=== PATIENT | male | born 1960 | race Caucasian/White ===

== ENCOUNTER 2023-05-31 11:36 | Outpatient (OUT) | payer OTHER, SELFPAY ==
--- NOTE | 2023-05-31 12:05 | XR_ITS ---
The [address] [address] Patient Name: CAROL NANCE MRN: [id number] date: 1960 Sex: M Assigned Patient Location: RAD Current Patient Location: [facility] Accession/Order Number: [id number] Exam Date: 05/31/2023 12:00 Report Date: 05/31/2023 12:19 At the request of: JENSEN HERRERA Procedure: XR finger RT min 2V EXAM: XR finger RT min 2V HISTORY: Right thumb cellulitis L03.011 . The patient has redness and pain in the right thumb 3 weeks after an injury. COMPARISON: None. TECHNIQUE: 3 views of the right thumb were obtained. FINDINGS: There is evidence of a nondisplaced fracture involving the proximal shaft of the distal phalanx of the thumb. This does not extend to the articular surface at the adjacent joint. There is no other evidence of an acute fracture or dislocation. Ill-defined focal lucency is seen along the distal aspect of the proximal phalanx ulnarly. This may indicate an additional nondisplaced fracture or possibly a focal area of osteomyelitis. There is prominent narrowing of the interphalangeal joint of the thumb. No other significant osseous abnormality is identified. Prominent diffuse soft tissue swelling about the thumb is noted. XR/XR finger RT min 2V IMPRESSION: There is a nondisplaced fracture involving the distal phalanx of the thumb. Ill-defined focal lucency in the distal aspect of the proximal phalanx suggests an additional nondisplaced fracture or possibly focal osteomyelitis. There is prominent narrowing of the interphalangeal joint of the thumb. No other osseous abnormality is clearly identified. Prominent diffuse soft tissue swelling of the thumb is noted. Comparison with a previous study may be helpful in determining the chronicity of these findings. A follow-up study after appropriate therapy is recommended. Electronically authenticated by: YADY ALEXANDER Date: 05/31/2023 12:19
== END 2023-05-31 11:37 | disposition home or self-care (01) ==
PROVIDERS: PCP Family Medicine; Visit Provider Family Medicine
DX: L03.011 Cellulitis of right finger (principal)
CPT/HCPCS: 73140

== ENCOUNTER 2023-06-08 09:29 | Outpatient (OUT) | payer OTHER, SELFPAY ==
--- NOTE | 2023-06-08 09:45 | MR_ITS ---
The [address] [address] Patient Name: CAROL NANCE MRN: [id number] date: 1960 Sex: M Assigned Patient Location: MRI Current Patient Location: Accession/Order Number: [id number] Exam Date: 06/08/2023 09:45 Report Date: 06/10/2023 18:04 At the request of: SARAH BETH HESS Procedure: MR hand RT wo con EXAM: MR hand RT wo con HISTORY: First distal phalanx fracture COMPARISON: X-rays 05/31/2023 TECHNIQUE: Multiplanar, multi sequential MRI sequences were performed FINDINGS: Due to the nature of MRI imaging, evaluation of the patient's fracture is limited. Fracture of the first distal phalanx. Bone marrow edema throughout the first distal phalanx. Bone marrow edema of the first proximal phalanx with sparing of the proximal phalanx base. Adjacent soft tissue edema. No discrete first IP joint effusion. The first metacarpal and the remainder of the visualized osseous structures are unremarkable. The tendons of the first digit exhibit no gross visualized full-thickness tear or retraction. The remainder of the visualized tendons are unremarkable. The first carpometacarpal, first metacarpophalangeal, second and third metacarpophalangeal joints exhibit no effusion, erosion or synovitis. MR/MR hand RT wo con IMPRESSION: The first distal phalanx fracture. CT imaging is recommended for further evaluation of the fracture fragments. Electronically authenticated by: LUCY ALARCON Date: 06/10/2023 18:04
== END 2023-06-08 09:30 | disposition home or self-care (01) ==
LOC: MRI 09:30
PROVIDERS: PCP Family Medicine; Visit Provider Orthopaedic Surgery
DX: S62.501A Fracture of unspecified phalanx of right thumb, initial encounter for closed fracture (principal)
CPT/HCPCS: 73218

== ENCOUNTER 2024-02-20 08:35 | Outpatient (OUT) | payer OTHER, SELFPAY ==
[2024-02-20 09:35] LABS: Estimated Average Glucose 117 mg/dL; Glycohemoglobin A1C 5.7 % (4.5-6.2)
[2024-02-20 09:39] LABS: Basophils Absolute Auto 0.1 10^3/uL (0.0-0.1); Basophils Percent Auto 1.2 % (0.2-2.0); Eosinophils Absolute Auto 0.2 10^3/uL (0.0-0.7); Eosinophils Percent Auto 3.9 % (0.9-7.0); Hematocrit 42.6 % (42.0-54.0); Hemoglobin 14.7 g/dL (14.0-18.0); Immature Granulocytes Abs Auto 0.02 10^3/uL (0.00-0.03); Immature Granulocytes Pct Auto 0.3 % (0.0-0.5); Lymphocytes Percent Auto 33.1 % (20.5-60.0); Mean Corpuscular HGB Conc 34.5 g/dL (29.9-35.2); Mean Corpuscular Hemoglobin 32.6 pg (25.9-34.0); Mean Corpuscular Volume 94.5 fL (80.0-94.0); Mean Platelet Volume 9.6 fL (9.5-13.5); Monocytes Absolute Auto 0.7 10^3/uL (0.3-0.8); Monocytes Percent Auto 11.7 % (1.7-12.0); Neutrophils Percent Auto 49.8 % (43.0-75.0); Platelet Count 230 10^3/uL (150-450); Red Blood Count 4.51 10^6/uL (4.70-6.10); Red Cell Distribution Width 11.6 % (11.0-15.0)
[2024-02-20 11:39] LABS: Alanine Aminotransferase 43 U/L (16-63); Albumin Globulin Ratio 1.1; Alkaline Phosphatase 62 U/L (46-116); Anion Gap 12.1; Aspartate Amino Transferase 29 U/L (15-37); BUN Creatinine Ratio 14.3; Bilirubin Direct 0.1 mg/dL (0.0-0.2); Bilirubin Total 0.5 mg/dL (0.2-1.0); Calcium 9.5 mg/dL (8.5-10.1); Carbon Dioxide 27.2 mmol/L (21.0-32.0); Chloride 102 mmol/L (98-107); Chol HDL Ratio 3.7; Cholesterol 182 mg/dL (<=200); Estimated GFR (African America >60 (>=60); Estimated GFR (Non-African Ame >60 (>=60); Globulin 3.6 g/dL; Glucose 104 mg/dL (74-106); HDL Cholesterol 49 mg/dL (40-60); Potassium 4.3 mmol/L (3.5-5.1); Sodium 137 mmol/L (136-145); Thyroid Stimulating Hormone 0.975 uIU/mL (0.358-3.740); Total Protein 7.6 g/dL (6.4-8.2); Triglycerides 70 mg/dL (<=150)
[2024-02-20 11:46] LABS: Prostate Specific Antigen Scrn <0.13 ng/mL (<=4.00)
== END 2024-02-20 08:36 | disposition home or self-care (01) ==
LOC: LAB 08:36
PROVIDERS: PCP Family Medicine; Visit Provider Family Medicine
DX: Z00.00 Encounter for general adult medical examination without abnormal findings (principal)
CPT/HCPCS: 36415; 80048; 80061; 80076; 83036; 84443; 85025; G0103

== ENCOUNTER 2024-05-21 07:04 | Outpatient (OUT) | payer OTHER, SELFPAY ==
--- OUTSIDE RECORDS SUMMARY | 2024-05-21 07:07 | XMS_ITS | CCD ---
Author Organization [facility] Inform ion Partnership [facility] Care Team Providers Care Mobile Ui Designer Name Role Phone DR JENSEN HERRERA Admitting Unavailable JAVIER, DR JENSEN Quinteros Attending Unavailable DR JENSEN HERRERA Primary Care Unavailable DR JENSEN HERRERA Consulting Unavailable JENSEN HERRERA Attending Unavailable JAILENE NUGENT Attending Unavailable JENSEN HERRERA Referring Unavailable Problems Problem Classification Problem Date Documented Da te Episodic/Chronic Other screening for suspected conditions (not mental disorders or infectious disease) (1 source) Encounter for screening for malignant neoplasm of prostate; Translations: [ENC SCREEN MALIG NEOPLASM PROSTATE] Onset: 03-03-2023 Episodic Results Test Name Value Interpretation Reference Range Facil ity CBC AUTO DIFFon 02-27-2023 BASO # 0.1 103/ul Normal 0.0-0.1 [facility] Comment on above: Performed By: #### C BC #### [facility] [address] [place] [address] Dr. Reji Briscoe Basophils/100 WBC (Bld) 1.1 % Normal 0.2-2.0 [facility] Comment on above: Performed By: #### C BC #### [facility] [address] [address] [address] Reji Briscoe EO # 0.2 103/ul Normal 0.0-0.7 [facility] Comment on above: Performed By: #### C BC #### [facility] [address] [address] [address] Reji Briscoe Eosinophils/100 WBC (Bld) 3.8 % Normal 0.9-7.0 [facility] Comment on above: Performed By: #### C BC #### [facility] [address] [address] [address] Reji Briscoe Erythrocyte distribution width (RBC) [Ratio] 12.2 % Normal 11.0-15.0 [facility] Comment on above: Performed By: #### C BC #### [facility] [address] [place] [address] Dr. Reji Briscoe Hematocrit (Bld) [Volume fraction] 44.4 % Normal 42.0-54.0 [facility] Comment on above: Performed By: #### C BC #### [facility] [address] [place] [address] Dr. Reji Briscoe Hemoglobin (Bld) [Mass/Vol] 15.2 g/dL Normal 14.0-18.0 [facility] Comment on above: Performed By: #### C BC #### [facility] [address] [place] [address] Dr. Reji Briscoe IG # 0.03 10e3/ul Normal 0.00-0.03 [facility] Comment on above: Performed By: #### C BC #### [facility] [address] [place] [address] Dr. Reji Briscoe IG % 0.5 % Normal 0.0-0.5 [facility] Comment on above: Performed By: #### C BC #### [facility] [address] [place] [address] Dr. Reji Briscoe LYMPH # 2.1 103/ul Normal 1.2-3.8 [facility] Comment on above: Performed By: #### C BC #### [facility] [address] [place] [address] Dr. Reji Briscoe Lymphocytes/100 WBC (Bld) 33.9 % Normal 20.5-60.0 [facility] Comment on above: Performed By: #### C BC #### [facility] [address] [place] [address] Dr. Reji Briscoe MANUAL DIFF REQ NO Normal [facility] Comment on above: Performed By: #### C BC #### [facility] [address] [place] [address] Dr. Reji Briscoe MCH (RBC) [Entitic mass] 31.6 pg Normal 25.9-34.0 [facility] Comment on above: Performed By: #### C BC #### [facility] [address] [place] [address] Dr. Reji Briscoe MCHC (RBC) [Mass/Vol] 34.2 g/dL Normal 29.9-35.2 [facility] Comment on above: Performed By: #### C BC #### [facility] [address] [place] [address] Dr. Reji Briscoe MCV (RBC) [Entitic vol] 92.3 fL Normal 80.0-94.0 [facility] Comment on above: Performed By: #### C BC #### [facility] [address] [place] [address] Dr. Reji Briscoe MONO # 0.5 103/ul Normal 0.3-0.8 [facility] Comment on above: Performed By: #### C BC #### [facility] [address] [place] [address] Dr. Reji Briscoe Monocytes/100 WBC (Bld) 8.6 % Normal 1.7-12.0 [facility] Comment on above: Performed By: #### C BC #### [facility] [address] [place] [address] Dr. Reji Briscoe NEUT # 3.2 103/ul Normal 1.4-6.5 [facility] Comment on above: Performed By: #### C BC #### [facility] [address] [place] [address] Dr. Reji Briscoe Neutrophils/100 WBC (Bld) 52.1 % Normal 43.0-75.0 [facility] Comment on above: Performed By: #### C BC #### [facility] [address] [place] [address] Dr. Reji Briscoe Platelet mean volume (Bld) [Entitic vol] 8.9 fL Critically low 9.5-13.5 [facility] Comment on above: Performed By: #### C BC #### [facility] [address] [place] [address] Dr. Reji Briscoe PLT 235 103/ul Normal 150-450 [facility] Comment on above: Performed By: #### C BC #### [facility] [address] [place] [address] Dr. Reji Briscoe RBC 4.81 106/ul Normal 4.70-6.10 [facility] Comment on above: Performed By: #### C BC #### [facility] [address] [address] [address] Reji Briscoe WBC 6.1 103/ul Normal 4.0-11.0 [facility] Comment on above: Performed By: #### C BC #### [facility] [address] [place] [address] Dr. Reji Briscoe GLYCOHEMOGLOBIN A1Con 2022 ADA RECOMMENDATION SEE BELOW Normal [facility] Comment on above: Result Comment: ADA RECOMMENDED LIMIT 4.0 - 6.0 ADA THERAPEUTIC TARGET < 7.0 ACTION SUGGESTED > 7.0 Performed By: #### A 1C #### [facility] [address] [place] [address] Dr. Reji Briscoe Glucose [Mass/Vol] 117 mg/dL Normal [facility] Comment on above: Performed By: #### A 1C #### [facility] [address] [place] [address] Dr. Reji Briscoe HbA1c (Bld) [Mass fraction] 5.7 % Normal 4.5-6.2 [facility] Comment on above: Performed By: #### A 1C #### [facility] [address] [place] [address] Dr. Reji Briscoe LIPID PROFILEon 02-27-2023 CHOL-HDL RATIO NORM SEE BELOW Normal [facility] Comment on above: Result Comment: 3.3 - 4.4 LOW RISK 4.4 - 7.1 AVERAGE RISK 7.1 - 11.0 MODERATE RISK >11.0 HIGH RISK Performed By: #### T SH, LIPID, LIVER, BMP #### [facility] [address] [place] [address] Dr. Reji Briscoe Cholesterol [Mass/Vol] 200 mg/dL Normal <=200 [facility] Comment on above: Performed By: #### T SH, LIPID, LIVER, BMP #### [facility] [address] [address] [address] Reji Briscoe Cholesterol in HDL [Mass/Vol] 43 mg/dL Normal 40-60 [facility] Comment on above: Performed By: #### T SH, LIPID, LIVER, BMP #### [facility] [address] [address] [address] Reji Briscoe Cholesterol in LDL [Mass/Vol] 116.4 mg/dL Normal [facility] Comment on above: Performed By: #### T SH, LIPID, LIVER, BMP #### [facility] [address] [address] [address] Reji Briscoe Cholesterol.total/Cho lesterol in HDL [Mass ratio] 4.7 {ratio} Normal [facility] Comment on above: Performed By: #### T SH, LIPID, LIVER, BMP #### [facility] [address] [address] [address] Reji Briscoe HDL NORMAL > or = 60 mg/dl - LOW CARDIOVASCULAR RISK <40 mg/dl - HIGH CARDIOVASCULAR RISK Normal [facility] Comment on above: Performed By: #### T SH, LIPID, LIVER, BMP #### [facility] [address] [address] [address] Reji Briscoe LDL CALC NORMAL SEE BELOW Normal [facility] Comment on above: Result Comment: <100 mg/dl OPTIMAL 100 - 129 mg/dl NEAR OR ABOVE OPTIMAL 130 - 159 mg/dl BORDERLINE HIGH 160 - 189 mg/dl HIGH >190 mg/dl VERY HIGH Performed By: #### T SH, LIPID, LIVER, BMP #### [facility] [address] [address] [address] Reji Briscoe Triglyceride [Mass/Vol] 203 mg/dL Critically high <=150 [facility] Comment on above: Performed By: #### T SH, LIPID, LIVER, BMP #### [facility] [address] [address] [address] Reji Briscoe VLDL CALC 40.6 mg/dL Normal [facility] Comment on above: Performed By: #### T SH, LIPID, LIVER, BMP #### [facility] [address] [place] [address] Dr. Reji Briscoe LIVER PROFILEon 02-27-2023 Albumin [Mass/Vol] 4.0 g/dL Normal 3.4-5.0 [facility] Comment on above: Performed By: #### T SH, LIPID, LIVER, BMP #### [facility] [address] [place] [address] Dr. Reji Bricsoe Albumin/Globulin [Mass ratio] 1.1 {ratio} Normal [facility] Comment on above: Performed By: #### T SH, LIPID, LIVER, BMP #### [facility] [address] [place] [address] Dr. Reji Briscoe ALP [Catalytic activity/Vol] 59 U/L Normal 46-116 [facility] Comment on above: Performed By: #### T SH, LIPID, LIVER, BMP #### [facility] [address] [place] [address] Dr. Reji Briscoe ALT [Catalytic activity/Vol] 41 U/L Normal 16-63 [facility] Comment on above: Performed By: #### T SH, LIPID, LIVER, BMP #### [facility] [address] [place] [address] Dr. Reji Briscoe AST [Catalytic activity/Vol] 22 U/L Normal 15-37 [facility] Comment on above: Performed By: #### T SH, LIPID, LIVER, BMP #### [facility] [address] [place] [address] Dr. Reji Briscoe BILI, CONJUGATED 0.1 mg/dL Normal 0.0-0.2 [facility] Comment on above: Performed By: #### T SH, LIPID, LIVER, BMP #### [facility] [address] [place] [address] Dr. Reji Briscoe Bilirubin [Mass/Vol] 0.5 mg/dL Normal 0.2-1.0 [facility] Comment on above: Performed By: #### T SH, LIPID, LIVER, BMP #### [facility] [address] [place] [address] Dr. Reji Briscoe Globulin (S) [Mass/Vol] 3.5 g/dL Normal [facility] Comment on above: Performed By: #### T SH, LIPID, LIVER, BMP #### [facility] [address] [address] [address] Reji Briscoe Protein [Mass/Vol] 7.5 g/dL Normal 6.4-8.[address] [facility] Comment on above: Performed By: #### T SH, LIPID, LIVER, BMP #### [facility] [address] [address] [address] Reji Briscoe PROF CHEM 8 (BAS METB)on Anion gap [Moles/Vol] 9.2 mmol/L Normal [facility] Comment on above: Performed By: #### T SH, LIPID, LIVER, BMP #### [facility] [address] [address] [address] Reji Briscoe Calcium [Mass/Vol] 8.9 mg/dL Normal 8.5-10.[address] [facility] Comment on above: Performed By: #### T SH, LIPID, LIVER, BMP #### [facility] [address] [address] [address] Reji Briscoe Chloride [Moles/Vol] 100 mmol/L Normal 98-107 [facility] Comment on above: Performed By: #### T SH, LIPID, LIVER, BMP #### [facility] [address] [address] [address] Reji Briscoe CO2 [Moles/Vol] 30.0 mmol/L Normal 21.0-32.0 [facility] Comment on above: Performed By: #### T SH, LIPID, LIVER, BMP #### [facility] [address] [address] [address] Reji Briscoe Creatinine [Mass/Vol] 0.97 mg/dL Normal 0.70-1.30 [facility] Comment on above: Performed By: #### T SH, LIPID, LIVER, BMP #### [facility] [address] [address] [address] Reji Briscoe EGFR-AF VIETNAMESE >60 Normal >=60 [facility] Comment on above: Performed By: #### T SH, LIPID, LIVER, BMP #### [facility] [address] [address] [address] Reji Briscoe EGFR-NON AF VIETNAMESE >60 Normal >=60 [facility] Comment on above: Performed By: #### T SH, LIPID, LIVER, BMP #### [facility] [address] [address] [address] Reji Briscoe Glucose [Mass/Vol] 121 mg/dL Critically high 74-106 [facility] Comment on above: Performed By: #### T SH, LIPID, LIVER, BMP #### [facility] [address] [address] [address] Reji Briscoe Potassium [Moles/Vol] 4.2 mmol/L Normal 3.5-5.1 [facility] Comment on above: Performed By: #### T SH, LIPID, LIVER, BMP #### [facility] [address] [place] [address] Dr. Reji Briscoe Sodium [Moles/Vol] 135 mmol/L Critically low 136-145 [facility] Comment on above: Performed By: #### T SH, LIPID, LIVER, BMP #### [facility] [address] [place] [address] Dr. Reji Briscoe Urea nitrogen [Mass/Vol] 11.0 mg/dL Normal 7.0-18.0 [facility] Comment on above: Performed By: #### T SH, LIPID, LIVER, BMP #### [facility] [address] [place] [address] Dr. Reji Briscoe Urea nitrogen/Creatinine [Mass ratio] 11.3 mg/mg Normal [facility] Comment on above: Performed By: #### T SH, LIPID, LIVER, BMP #### [facility] [address] [place] [address] Dr. Reji Briscoe TSHon 02-27-2023 TSH 0.861 uIU/mL Normal 0.358-3.740 [facility] Comment on above: Performed By: #### T SH, LIPID, LIVER, BMP #### [facility] [address] [place], [place] [address] Dr. Reji Briscoe Encounters Encounter Date Encounter Type Care Provider Facility Start: 03-12-2024 End: 03-12-2024 ambulatory JAILENE NUGENT Not Available Start: 02-20-2024 End: 02-20-2024 ambulatory JENSEN HERRERA Not Available Start: 03-03-2023 Encounter for genera l adult medical examination without abnormal findings DR JENSEN HERRERA [facility] Start: 02-27-2023 End: 02-28-[address] JENSEN HERRERA Facility:[facility] Start: 02-27-2023 End: 02-28-2023 Encounter for general adult medical examination without abnormal findings DR JENSEN HERRERA Facility:[facility] Procedures Date Procedure Procedure Detail Performing Clinician Start: 02-27-[address] JENSEN HOPPER Comment on above: Performed By: #### [facility] #### [facility] [address] [place] [address] [id number] [address] Reji Briscoe Payers Date Payer Category Payer Unknown [id number] 1960 Unknown [id number] 1960 Unknown [id number] 1960 Unknown [id number] Summary Purpose Family History No Family History Records FoundNo Family History Records Found Advance Directives No Advanced Directives Records FoundNo Advanced Directives Records Found Additional Source Comments (unrecognized sect ion and content) No Status Records FoundNo Status Records Found INFORMATION SOURCE (unrecogn ized section and content) DATE CREATED AUTHOR 03/04/2023 [facility] DATE CREATED AUTHOR AUTHOR'S SUMAN ATUGO 03/15/2024 [facility] EPIC FOR RECORDS PERTAINING TO PATIENTS WHO ARE OR HAVE BEEN ENROLLED IN A CHEMICAL DEPENDENCY/SUBSTANCEABUSE PROGRAM, SOME INFORMATION MAY BE OMITTED. This clinical summary was aggregated from multiple sources. Caution should be exercised in using it in the provision of clinical care. This summary normalizes information from multiple sources, and as a consequence, information in this document may materially change the coding, format and clinical context of patient data. In addition, data may be omitted in some cases. CLINICAL DECISIONS SHOULD BE BASED ON THE PRIMARY CLINICAL RECORDS. [employer] [facility]. provides no warranty or guarantee of the accuracy or completeness of information in this document.
== END 2024-05-21 07:05 | disposition home or self-care (01) ==
LOC: PST 07:04
PROVIDERS: PCP Family Medicine; Visit Provider Surgery
DX: Z01.818 Encounter for other preprocedural examination (principal); Z12.11 Encounter for screening for malignant neoplasm of colon

== ENCOUNTER 2024-05-27 07:04 | Day surgery (SDC) | payer OTHER, SELFPAY ==
--- OUTSIDE RECORDS SUMMARY | 2024-05-27 07:08 | XMS_ITS | CCD ---
Author Organization [facility] Team Providers Care Dial Mounter Name Role Phone DR JENSEN HERRERA Admitting Unavailable JAVIER, DR JENSEN Quinteros Attending Unavailable JAVIER, DR JENSEN Quinteros Primary Care Unavailable JAVIER, DR JENSEN Quinteros Consulting Unavailable JAVIER, JENSEN Attending Unavailable JAILENE NUGENT Attending Unavailable JAVIER, JENSEN Referring Unavailable JAVIER, JENSEN Attending Unavailable JAVIER, JENSEN Referring Unavailable Problems Problem Classification Problem Date Documented Da te Episodic/Chronic Other screening for suspected conditions (not mental disorders or infectious disease) (1 source) Encounter for screening for malignant neoplasm of prostate; Translations: [ENC SCREEN MALIG NEOPLASM PROSTATE] Onset: 03-03-2023 Episodic Results Test Name Value Interpretation Reference Range Facility XR CERVICAL SPINE 2-3 VIEWSo n 05-21-2024 XR CERVICAL SPINE 2-3 VIEWS FINDINGS: Cervical vertebral bodies are preserved in height and are relatively normally aligned. Mild disc space loss with no significant osteophyte formation C3-4. Moderate diffuse facet arthropathy. No fracture or focal soft tissue swelling is seen. Prevertebral soft tissues are normal. IMPRESSION: Mild diffuse arthritis (facet arthropathy), normal alignment TRANSCRIBED BY: ELECTRONICALLY SIGNED BY: Demetrio Jessica MD Normal Not Available XR LUMBAR SPINE 2-3 VIEWSon 05-21-2024 XR LUMBAR SPINE 2-3 VIEWS FINDINGS: Vertebral body heights are normal. Mild disc space loss thoracolumbar region. Central end plate depressions throughout the lumbar spine, non-acute appearance. Sclerosis involves posterior elements of the mid and distal lumbar spine and sacroiliac joints; however, no spondylolysis or spondylolisthesis is seen. No acute fracture is identified. Soft tissues are relatively unremarkable. IMPRESSION: Minimal arthritis, normal alignment TRANSCRIBED BY: ELECTRONICALLY SIGNED BY: Demetrio Jessica MD Normal Not Available CBC AUTO DIFFon 02-27-2023 BASO # 0.1 103/ul Normal 0.0-0.1 [facility] Comment on above: Performed By: #### C BC #### [facility] [address] [place] [address] Dr. Reji Brisceo Basophils/100 WBC (Bld) 1.1 % Normal 0.2-2.0 [facility] Comment on above: Performed By: #### C BC #### [facility] [address] [address] [address] Reji Briscoe EO # 0.2 103/ul Normal 0.0-0.7 [facility] Comment on above: Performed By: #### C BC #### [facility] [address] [place] [address] Dr. Reji Briscoe Eosinophils/100 WBC (Bld) 3.8 % Normal 0.9-7.0 [facility] Comment on above: Performed By: #### C BC #### [facility] [address] [place] [address] Dr. Reji Briscoe Erythrocyte distribution width (RBC) [Ratio] 12.2 % Normal 11.0-15.0 [facility] Comment on above: Performed By: #### C BC #### [facility] [address] [place] [address] Dr. Reji Briscoe Hematocrit (Bld) [Volume fraction] 44.4 % Normal 42.0-54.0 [facility] Comment on above: Performed By: #### C BC #### [facility] [address] [place] [address] Dr. Reji Briscoe Hemoglobin (Bld) [Mass/Vol] 15.2 g/dL Normal 14.0-18.0 [facility] Comment on above: Performed By: #### C BC #### [facility] [address] [place] [address] Dr. Reji Briscoe IG # 0.03 10e3/ul Normal 0.00-0.03 [facility] Comment on above: Performed By: #### C BC #### [facility] [address] [place] [address] Dr. Reji Briscoe IG % 0.5 % Normal 0.0-0.5 [facility] Comment on above: Performed By: #### C BC #### [facility] [address] [place] [address] Dr. Reji Briscoe LYMPH # 2.1 103/ul Normal 1.2-3.8 [facility] Comment on above: Performed By: #### C BC #### [facility] [address] [place] [address] Dr. Reji Briscoe Lymphocytes/100 WBC (Bld) 33.9 % Normal 20.5-60.0 [facility] Comment on above: Performed By: #### C BC #### [facility] [address] [place] [address] Dr. Reji Briscoe MANUAL DIFF REQ NO Normal [facility] Comment on above: Performed By: #### C BC #### [facility] [address] [place] [address] Dr. Reji Briscoe MCH (RBC) [Entitic mass] 31.6 pg Normal 25.9-34.0 [facility] Comment on above: Performed By: #### C BC #### [facility] [address] [place] [address] Dr. Reji Briscoe MCHC (RBC) [Mass/Vol] 34.2 g/dL Normal 29.9-35.2 [facility] Comment on above: Performed By: #### C BC #### [facility] [address] [place] [address] Dr. Reji Briscoe MCV (RBC) [Entitic vol] 92.3 fL Normal 80.0-94.0 [facility] Comment on above: Performed By: #### C BC #### [facility] [address] [place] [address] Dr. Reji Briscoe MONO # 0.5 103/ul Normal 0.3-0.8 [facility] Comment on above: Performed By: #### C BC #### [facility] [address] [place] [address] Dr. Reji Briscoe Monocytes/100 WBC (Bld) 8.6 % Normal 1.7-12.0 [facility] Comment on above: Performed By: #### C BC #### [facility] [address] [place] [address] Dr. Reji Briscoe NEUT # 3.2 103/ul Normal 1.4-6.5 [facility] Comment on above: Performed By: #### C BC #### [facility] [address] [place] [address] Dr. Reji Briscoe Neutrophils/100 WBC (Bld) 52.1 % Normal 43.0-75.0 [facility] Comment on above: Performed By: #### C BC #### [facility] [address] [place] [address] Dr. eRji Briscoe Platelet mean volume (Bld) [Entitic vol] 8.9 fL Critically low 9.5-13.5 [facility] Comment on above: Performed By: #### C BC #### [facility] [address] [place] [address] Dr. Reji Briscoe PLT 235 103/ul Normal 150-450 [facility] Comment on above: Performed By: #### C BC #### [facility] [address] [place] [address] Dr. Reji Briscoe RBC 4.81 106/ul Normal 4.70-6.10 [facility] Comment on above: Performed By: #### C BC #### [facility] [address] [place] [address] Dr. Reji Briscoe WBC 6.1 103/ul Normal 4.0-11.0 [facility] Comment on above: Performed By: #### C BC #### [facility] [address] [place] [address] Dr. Reji Briscoe GLYCOHEMOGLOBIN A1Con 2022 ADA RECOMMENDATION SEE BELOW Normal [facility] Comment on above: Result Comment: ADA RECOMMENDED LIMIT 4.0 - 6.0 ADA THERAPEUTIC TARGET < 7.0 ACTION SUGGESTED > 7.0 Performed By: #### A 1C #### [facility] [address] [place] [address] Dr. Reji Briscoe Glucose [Mass/Vol] 117 mg/dL Normal [facility] Comment on above: Performed By: #### A 1C #### [facility] [address] [address] [address] Reji Briscoe HbA1c (Bld) [Mass fraction] 5.7 % Normal 4.5-6.2 [facility] Comment on above: Performed By: #### A 1C #### [facility] [address] [address] [address] Reji Briscoe LIPID PROFILEon 02-27-2023 CHOL-HDL RATIO NORM SEE BELOW Normal [facility] Comment on above: Result Comment: 3.3 - 4.4 LOW RISK 4.4 - 7.1 AVERAGE RISK 7.1 - 11.0 MODERATE RISK >11.0 HIGH RISK Performed By: #### T SH, LIPID, LIVER, BMP #### [facility] [address] [place] [address] Dr. Reji Briscoe Cholesterol [Mass/Vol] 200 mg/dL Normal <=200 [facility] Comment on above: Performed By: #### T SH, LIPID, LIVER, BMP #### [facility] [address] [address] [address] Reji Briscoe Cholesterol in HDL [Mass/Vol] 43 mg/dL Normal 40-60 [facility] Comment on above: Performed By: #### T SH, LIPID, LIVER, BMP #### [facility] [address] [address] [address] Reji Briscoe Cholesterol in LDL [Mass/Vol] 116.4 mg/dL Normal [facility] Comment on above: Performed By: #### T SH, LIPID, LIVER, BMP #### [facility] [address] [address] [address] Reji Briscoe Cholesterol.total/Ch olesterol in HDL [Mass ratio] 4.7 {ratio} Normal [facility] Comment on above: Performed By: #### T SH, LIPID, LIVER, BMP #### [facility] [address] [address] [address] Reji Briscoe HDL NORMAL > or = 60 mg/dl - LO W CARDIOVASCULAR RISK <40 mg/dl - HIGH CARDIOVASCULAR RISK Normal [facility] Comment on above: Performed By: #### T SH, LIPID, LIVER, BMP #### [facility] [address] [address] [address] Reji Briscoe LDL CALC NORMAL SEE BELOW Normal [facility] Comment on above: Result Comment: <100 mg/dl OPTIMAL 100 - 129 mg/dl NEAR OR ABOVE OPTIMAL 130 - 159 mg/dl BORDERLINE HIGH 160 - 189 mg/dl HIGH >190 mg/dl VERY HIGH Performed By: #### T SH, LIPID, LIVER, BMP #### [facility] [address] [address] [address] Reji Briscoe Triglyceride [Mass/Vol] 203 mg/dL Critically high <=150 [facility] Comment on above: Performed By: #### T SH, LIPID, LIVER, BMP #### [facility] [address] [address] [address] Reji Briscoe VLDL CALC 40.6 mg/dL Normal [facility] Comment on above: Performed By: #### T SH, LIPID, LIVER, BMP #### [facility] [address] [address] [address] Reji Briscoe LIVER PROFILEon 02-27-2023 Albumin [Mass/Vol] 4.0 g/dL Normal 3.4-5.0 [facility] Comment on above: Performed By: #### T SH, LIPID, LIVER, BMP #### [facility] [address] [address] [address] Reji Briscoe Albumin/Globulin [Mass ratio] 1.1 {ratio} Normal [facility] Comment on above: Performed By: #### T SH, LIPID, LIVER, BMP #### [facility] [address] [address] [address] Reji Briscoe ALP [Catalytic activity/Vol] 59 U/L Normal 46-116 [facility] Comment on above: Performed By: #### T SH, LIPID, LIVER, BMP #### [facility] [address] [address] [address] Reji Briscoe ALT [Catalytic activity/Vol] 41 U/L Normal 16-63 [facility] Comment on above: Performed By: #### T SH, LIPID, LIVER, BMP #### [facility] [address] [address] [address] Reji Briscoe AST [Catalytic activity/Vol] 22 U/L Normal 15-37 [facility] Comment on above: Performed By: #### T SH, LIPID, LIVER, BMP #### [facility] [address] [place] [address] Dr. Reji Briscoe BILI, CONJUGATED 0.1 mg/dL Normal 0.0-0.2 [facility] Comment on above: Performed By: #### T SH, LIPID, LIVER, BMP #### [facility] [address] [place] [address] Dr. Reji Briscoe Bilirubin [Mass/Vol] 0.5 mg/dL Normal 0.2-1.0 [facility] Comment on above: Performed By: #### T SH, LIPID, LIVER, BMP #### [facility] [address] [place] [address] Dr. Reji Briscoe Globulin (S) [Mass/Vol] 3.5 g/dL Normal [facility] Comment on above: Performed By: #### T SH, LIPID, LIVER, BMP #### [facility] [address] [place] [address] Dr. Reji Briscoe Protein [Mass/Vol] 7.5 g/dL Normal 6.4-8.2 [facility] Comment on above: Performed By: #### T SH, LIPID, LIVER, BMP #### [facility] [address] [place] [address] Dr. Reji Briscoe PROF CHEM 8 (BAS METB)on Anion gap [Moles/Vol] 9.2 mmol/L Normal [facility] Comment on above: Performed By: #### T SH, LIPID, LIVER, BMP #### [facility] [address] [place] [address] Dr. Reji Briscoe Calcium [Mass/Vol] 8.9 mg/dL Normal 8.5-10.1 [facility] Comment on above: Performed By: #### T SH, LIPID, LIVER, BMP #### [facility] [address] [address] [address] Reji Briscoe Chloride [Moles/Vol] 100 mmol/L Normal 98-107 [facility] Comment on above: Performed By: #### T SH, LIPID, LIVER, BMP #### [facility] [address] [address] [address] Reji Briscoe CO2 [Moles/Vol] 30.0 mmol/L Normal 21.0-32.0 [facility] Comment on above: Performed By: #### T SH, LIPID, LIVER, BMP #### [facility] [address] [address] [address] Reji Briscoe Creatinine [Mass/Vol] 0.97 mg/dL Normal 0.70-1.30 [facility] Comment on above: Performed By: #### T SH, LIPID, LIVER, BMP #### [facility] [address] [address] [address] Reji Briscoe EGFR-AF [place]OV[place] >60 Normal >=60 [facility] Comment on above: Performed By: #### T SH, LIPID, LIVER, BMP #### [facility] [address] [address] [address] Reji Briscoe EGFR-NON AF [place] >60 Normal >=60 [facility] Comment on above: Performed By: #### T SH, LIPID, LIVER, BMP #### [facility] [address] [address] [address] Reji Briscoe Glucose [Mass/Vol] 121 mg/dL Critically high 74-106 [facility] Comment on above: Performed By: #### T SH, LIPID, LIVER, BMP #### [facility] [address] [address] [address] Reji Briscoe Potassium [Moles/Vol] 4.2 mmol/L Normal 3.5-5.1 [facility] Comment on above: Performed By: #### T SH, LIPID, LIVER, BMP #### [facility] [address] [address] [address] Reji Briscoe Sodium [Moles/Vol] 135 mmol/L Critically low 136-145 [facility] Comment on above: Performed By: #### T SH, LIPID, LIVER, BMP #### [facility] [address] [id number] Reji Briscoe Urea nitrogen [Mass/Vol] 11.0 mg/dL Normal 7.0-18.0 [facility] Comment on above: Performed By: #### T SH, LIPID, LIVER, BMP #### [facility] [address] [address] [address] Reji Briscoe Urea nitrogen/Creatinine [Mass ratio] 11.3 mg/mg Normal [facility] Comment on above: Performed By: #### T SH, LIPID, LIVER, BMP #### [facility] [address] [address] [address] Reji Briscoe TSHon 02-27-2023 TSH 0.861 uIU/mL Normal 0.358-3.740 [facility] Comment on above: Performed By: #### T SH, LIPID, LIVER, BMP #### [facility] [address] [address] [address] Reji Briscoe Encounters Encounter Date Encounter Type Care Provider Facility Start: 05-21-2024 End: 05-21-2024 ambulatory JENSEN HERRERA Not Available Start: 05-20-2024 End: 05-20-2024 ambulatory JENSEN HERRERA Not Available Start: 03-12-2024 End: 03-12-2024 ambulatory JAILENE NUGENT Not Available Start: 02-20-2024 End: 02-20-2024 ambulatory JENSEN HERRERA Not Available Start: 03-03-2023 Encounter for genera l adult medical examination without abnormal findings DR JENSEN HERRERA [facility] Start: 02-27-2023 End: 02-28-[address] JENSEN HERRERA Facility:[facility] Start: 02-27-2023 End: 02-28-2023 Encounter for general adult medical examination without abnormal findings DR JENSEN HERRERA Facility:[facility] Procedures Date Procedure Procedure Detail Performing Clinician Start: 02-27-[address] JENSEN HOPPER Comment on above: Performed By: #### P SASC #### [facility] [address] [id number] Reji Briscoe Payers Date Payer Category Payer Unknown [id number] 1960 Unknown [id number] 2.16.84 [id number] 1960 Unknown [id number] 2.16.84 [id number] 1960 Unknown [id number] 2.16.84 [id number] 1960 Unknown [id number] 2.16.84 [id number] 1960 Unknown [id number] 2.16.84 [id number] 1960 Unknown [id number] 2.16.84 [id number] Summary Purpose Family History No Family History Records FoundNo Family History Records Found Advance Directives No Advanced Directives Records FoundNo Advanced Directives Records Found Additional Source Comments (unrecognized sect ion and content) No Status Records FoundNo Status Records Found INFORMATION SOURCE (unrecogn ized section and content) DATE CREATED AUTHOR 03/04/[address] [facility] DATE CREATED AUTHOR AUTHOR'Dane GERBER 05/26/2024 [facility] EPIC FOR RECORDS PERTAINING TO PATIENTS [...] BE BASED ON THE PRIMARY CLINICAL RECORDS. [employer] provides no warranty or guarantee of the accuracy or completeness of information in this document.
[2024-05-27 07:45] VITALS: BP 168/87; PULSE 68; TEMP 36.2; O2SAT 98; BMI 31.1
[2024-05-27] MEDS: LACTATED RINGER'S SOLUTION 1,000 ML 50 ML IV (07:56)
--- NOTE | 2024-05-27 08:46 | W.PM.PROCNOT ---
Date of procedure: 05/27/24 Pre-op diagnosis: screening colonoscopy Post-op diagnosis: other (transverse colon polyp) Procedure: Previous colonoscopy: 2013 procedure: screening colonoscopy The patient was given IV conscious sedation.? The patient's SPO2 remained above 90% throughout the procedure. The colonoscope was inserted per rectum and advanced under direct vision to the cecum without difficulty.? The prep was good.? Findings: Terminal ileum os: normal Cecum/Ascending colon: normal Transverse colon: subcentimeter transverse colon complete polypectomy Descending/Sigmoid colon: normal Rectum/Anus: examined in normal and retroflexed positions and was normal Withdrawal Time was (minutes): 12 The colon was decompressed and the scope was removed.? The patient tolerated the procedure well. Recommendations/Plan: 1.? Lifestyle and dietary modifications as discussed 2.? F/U Biopsies 3.? F/U in 7-10 years pending path 4.? Discussed with the family Anesthesia: MAC Surgeon: Tramaine Castillo Estimated blood loss (mL): 1 Pathology: other (transverse subcentimeter polyp ) Condition: stable Disposition: PACU
[2024-05-27 09:59] VITALS: BP 129/64; PULSE 60; TEMP 36.2; O2SAT 96
[2024-05-27 10:14] VITALS: BP 144/93; PULSE 67; TEMP 36.2; O2SAT 97
[2024-05-27 10:29] VITALS: BP 146/89; PULSE 60; O2SAT 97
== END 2024-05-27 10:31 | disposition home or self-care (01) ==
PROVIDERS: PCP Family Medicine; Visit Provider Surgery
PROC: (CPT 811; principal; 2024-05-27 08:55)
DX: Z12.11 Encounter for screening for malignant neoplasm of colon (principal); D12.3 Benign neoplasm of transverse colon; Z87.891 Personal history of nicotine dependence; Z90.79 Acquired absence of other genital organ(s); E78.5 Hyperlipidemia, unspecified; I10 Essential (primary) hypertension; Z85.46 Personal history of malignant neoplasm of prostate
CPT/HCPCS: 45385; 88305; J2704

== ENCOUNTER 2025-04-09 09:16 | Outpatient (OUT) | payer MEDICARE, SELFPAY ==
--- OUTSIDE RECORDS SUMMARY | 2025-04-09 09:46 | XMS_ITS | CCD ---
Author Organization [facility] Care Team Providers Care Mailer Name Role Phone DR SUNNY HERRERA Admitting Unavailable JAVIER, DR SUNNY Quinteros Attending Unavailable JAVIER, DR SUNNY Quinteros Primary Care Unavailable JAVIER, DR SUNNY Quinteros Consulting Unavailable DO Jailene Castillo Attending Provider [phone] Jailene Castillo Attending Unavailable Jailene Castillo Admitting Unavailable Sunny Herrera MD Primary Care Provider [phone] SUNNY HERRERA Attending Unavailable JAVIER, SUNNY Attending Unavailable JAILENE CASTILLO Attending Unavailable SUNNY HERRERA Referring Unavailable JAVIER, SUNNY Attending Unavailable SUNNY HERRERA Referring Unavailable JAVIER, SUNNY Attending Unavailable AICHHOLROXANNE Marie Attending Unavailable NADGEORGE, SUNNY Attending Unavailable Allergies Allergy Classification Reported Allergen(s) Allergy Type Date of Onset Reaction(s) Facility (13 sources) Penicillin G Drug Allergy 02-20-2024 Unknown [facility] (9 sources) Honey bee venom Allergy to substance 10-16-2024 Hives [facility] Medications Current Medications Medication Drug Class(es) Dates Sig (Normalized) Sig (Original) acetaminophen 500 mg / diphenhydrAMINE hydrochloride 25 mg oral tablet (13 sources) Histamine-1 Receptor Antagonist take 25-500 mg by mouth once as needed diphenhydrAMINE-aceta minophen (Tylenol PM) 25-500 MG per tablet Take 1 tablet by mouth as needed at bedtime for sleep Active atorvastatin 80 mg oral tablet (14 sources) HMG-CoA Reductase Inhibitor Start: 4 End: 6 take 1 tablet by mouth at bedtime atorvastatin (Lipitor) 80 MG tablet Indications: Essential hypertension, benign (CMS/HCC) Take 1 tablet (80 mg) by mouth at bedtime 90 tablet 3 03/25/2025 03/25/2026 Active doxycycline hyclate 100 mg oral tablet (4 sources) Tetracycline-class Drug Start: 4 End: 5 doxycycline (Vibra-Tabs) 100 MG tablet Indications: Subacute maxillary sinusitis , Right otitis media with effusion Take 1 tablet (100 mg) by mouth in the morning and 1 tablet (100 mg) before bedtime. Do all this for 10 days. Take with a full glass of water and do not lie down for at least 30 minutes after.. 20 tablet 10/16/2024 10/29/2024 Discontinued levoFLOXacin 750 mg oral tablet (2 sources) Quinolone Antimicrobial Start: 5 End: 5 take 1 tablet by mouth once daily levoFLOXacin (Levaquin) 750 MG tablet Indications: Subacute maxillary sinusitis Take 1 tablet (750 mg) by mouth Daily for 7 days 7 tablet 10/29/2024 11/05/2024 Active lisinopril 40 mg oral tablet (14 sources) Angiotensin Converting Enzyme Inhibitor Start: 4 End: 6 take 1 tablet by mouth once daily lisinopril 40 MG tablet Indications: Essential hypertension, benign (CMS/HCC) Take 1 tablet (40 mg) by mouth Daily 90 tablet 3 03/25/2025 03/25/2026 Active methylPREDNISolone (2 sources) Corticosteroid Start: 4 End: 5 methylPREDNISolone (Medrol Dospak) 4 MG tablets Indications: Subacute maxillary sinusitis Follow schedule on package instructions 21 tablet 10/16/2024 10/23/2024 Active predniSONE 50 mg oral tablet (2 sources) Start: 5 End: 5 take 1 tablet by mouth once daily predniSONE (Deltasone) 50 MG tablet Indications: Subacute maxillary sinusitis Take 1 tablet (50 mg) by mouth Daily for 6 days 6 tablet 10/29/2024 11/04/2024 Active Problems Active Problems Problem Classification Problem Date Documented Date Episodic/Chronic Anxiety disorders (15 sources) Generalized anxiety disorder; Translations: [Generalized anxiety disorder] Onset: 02-20-2024 08-29-2024 Chronic Disorders of lipid metabolism (13 sources) Dyslipidemia; Translations: [Hyperlipidemia, unspecified] Onset: 02-20-2024 02-20-2024 Chronic Essential hypertension (18 sources) Benign essential hypertension; Translations: [Essential (primary) hypertension] Onset: 02-20-2024 08-29-2024 Chronic Other nutritional; endocrine; and metabolic disorders (13 sources) Body mass index 30+ - obesity; Translations: [Obesity, unspecified] Onset: 04-30-2024 04-30-2024 Chronic Other screening for suspected conditions (not mental disorders or infectious disease) (1 source) Encounter for screening for malignant neoplasm of prostate; Translations: [ENC SCREEN MALIG NEOPLASM PROSTATE] Onset: 03-03-2023 Episodic Other upper respiratory infections (16 sources) Chronic sinusitis, unspecified; Translations: [Chronic rhinitis] Onset: 08-29-2024 08-29-2024 Chronic Spondylosis; intervertebral disc disorders; other back problems (20 sources) Degeneration of cervical intervertebral disc; Translations: [Other cervical disc degeneration, unspecified cervical region] Onset: 05-20-2024 08-29-2024 Chronic Past or Other Problems Problem Classification Problem Date Documented Date Episodic/Chronic Cancer of prostate (13 sources) History of malignant neoplasm of prostate; Translations: [Personal history of malignant neoplasm of prostate] Onset: 02-20-2024 02-20-2024 Episodic Other aftercare (13 sources) Long-term current use of drug therapy; Translations: [Other penitentiary (current) drug therapy] Onset: 04-30-2024 04-30-2024 Episodic Other connective tissue disease (13 sources) Triggering of digit; Translations: [Trigger finger, right middle finger] Onset: 02-20-2024 02-20-2024 Episodic Other nervous system disorders (13 sources) Paresthesia; Translations: [Paresthesia of skin] Onset: 05-20-2024 05-20-2024 Episodic Other upper respiratory infections (13 sources) Acute maxillary sinusitis; Translations: [Acute maxillary sinusitis, unspecified] Onset: 10-16-2024 10-16-2024 Episodic Otitis media and related conditions (13 sources) Otitis media; Translations: [Unspecified nonsuppurative otitis media, right ear] Onset: 10-16-2024 Resolved: 12-01-2024 10-16-2024 Episodic Spondylosis; intervertebral disc disorders; other back problems (2 sources) Chronic neck pain; Translations: [Cervicalgia] Onset: 05-20-2024 05-20-2024 Episodic Results Test Name Value Interpretation Reference Range Facility Pathology Request for Lab Co rpon 05-27-2024 Pathology Request for Lab Lillie Normal [facility] Comment on above: Order Comment: PATHO LOGY GI SPECIMEN Result Comment: See report. Scanned copy available in EMR. PERFORMED BY: [place] [address] PATHOLOGIST WINDOW FRAMER CRISTOBAL AU M.D. Performed By: #### P ATH TO [facility] #### [address] XR CERVICAL SPINE 2-3 VIEWSo n 05-21-2024 [...] 02-27-2023 BASO # 0.1 103/ul Normal 0.0-0.1 [facility] Comment on above: Performed By: #### C BC #### [facility] [address] [place], [place] [address] Dr. Reji Briscoe Basophils/100 WBC (Bld) 1.1 % Normal 0.2-2.0 [facility] Comment on above: Performed By: #### C BC #### [facility] [address] [place], [place] [address] Dr. Reji Briscoe EO # 0.2 103/ul Normal 0.0-0.7 [facility] Comment on above: Performed By: #### C BC #### [facility] [address] [place] [address] Dr. Reji Briscoe Eosinophils/100 WBC (Bld) 3.8 % Normal 0.9-7.0 [facility] Comment on above: Performed By: #### C BC #### [facility] [address] [place] [address] Dr. Reji Briscoe Erythrocyte distribution width (RBC) [Ratio] 12.2 % Normal 11.0-15.0 [facility] Comment on above: Performed By: #### C BC #### [facility] [address] [place] [address] Dr. Reji Briscoe Hematocrit (Bld) [Volume fraction] 44.4 % Normal 42.0-54.0 [facility] Comment on above: Performed By: #### C BC #### [facility] [address] [place] [address] Dr. Reji Briscoe Hemoglobin (Bld) [Mass/Vol] 15.2 g/dL Normal 14.0-18.0 [facility] Comment on above: Performed By: #### C BC #### [facility] [address] [place] [address] Dr. Reji Briscoe IG # 0.03 10e3/ul Normal 0.00-0.03 [facility] Comment on above: Performed By: #### C BC #### [facility] [address] [place] [address] Dr. Reji Briscoe IG % 0.5 % Normal 0.0-0.5 [facility] Comment on above: Performed By: #### C BC #### [facility] [address] [place] [address] Dr. Reji Briscoe LYMPH # 2.1 103/ul Normal 1.2-3.8 [facility] Comment on above: Performed By: #### C BC #### [facility] [address] [place] [address] Dr. Reji Briscoe Lymphocytes/100 WBC (Bld) 33.9 % Normal 20.5-60.0 [facility] Comment on above: Performed By: #### C BC #### [facility] [address] [place] [address] Dr. Reji Briscoe MANUAL DIFF REQ NO Normal [facility] Comment on above: Performed By: #### C BC #### [facility] [address] [place] [address] Dr. Reji Briscoe MCH (RBC) [Entitic mass] 31.6 pg Normal 25.9-34.0 [facility] Comment on above: Performed By: #### C BC #### [facility] [address] [place] [address] Dr. Reji Briscoe MCHC (RBC) [Mass/Vol] 34.2 g/dL Normal 29.9-35.2 [facility] Comment on above: Performed By: #### C BC #### [facility] [address] [place] [address] Dr. Reji Briscoe MCV (RBC) [Entitic vol] 92.3 fL Normal 80.0-94.0 [facility] Comment on above: Performed By: #### C BC #### [facility] [address] [place] [address] Dr. Reji Briscoe MONO # 0.5 103/ul Normal 0.3-0.8 [facility] Comment on above: Performed By: #### C BC #### [facility] [address] [place] [address] Dr. Reji Briscoe Monocytes/100 WBC (Bld) 8.6 % Normal 1.7-12.0 [facility] Comment on above: Performed By: #### C BC #### [facility] [address] [place] [address] Dr. Reji Briscoe NEUT # 3.2 103/ul Normal 1.4-6.5 [facility] Comment on above: Performed By: #### C BC #### [facility] [address] [place] [address] Dr. Reji Briscoe Neutrophils/100 WBC (Bld) 52.1 % Normal 43.0-75.0 [facility] Comment on above: Performed By: #### C BC #### [facility] [address] [place] [address] Dr. Reji Briscoe Platelet mean volume (Bld) [Entitic vol] 8.9 fL Critically low 9.5-13.5 [facility] Comment on above: Performed By: #### C BC #### [facility] [address] [place] [address] [address] Reji Briscoe PLT 235 103/ul Normal 150-450 [facility] Comment on above: Performed By: #### C BC #### [facility] [address] [place] [address] Dr. Reji Briscoe RBC 4.81 106/ul Normal 4.70-6.10 [facility] Comment on above: Performed By: #### C BC #### [facility] [address] [place] [address] Dr. Reji Briscoe WBC 6.1 103/ul Normal 4.0-11.0 [facility] Comment on above: Performed By: #### C BC #### [facility] [address] [place] [address] Dr. Reji Briscoe GLYCOHEMOGLOBIN A1Con 2022 ADA RECOMMENDATION SEE BELOW Normal [facility] Comment on above: Result Comment: ADA RECOMMENDED LIMIT 4.0 - 6.0 ADA THERAPEUTIC TARGET < 7.0 ACTION SUGGESTED > 7.0 Performed By: #### A 1C #### [facility] [address] [place] [address] Dr. Reji Briscoe Glucose [Mass/Vol] 117 mg/dL Normal [facility] Comment on above: Performed By: #### A 1C #### [facility] [address] [place] [address] Dr. Reji Briscoe HbA1c (Bld) [Mass fraction] 5.7 % Normal 4.5-6.2 [facility] Comment on above: Performed By: #### A 1C #### [facility] [address] [place] [address] Dr. Reji Briscoe LIPID PROFILEon 02-27-2023 CHOL-HDL RATIO NORM SEE BELOW Normal [facility] Comment on above: Result Comment: 3.3 - 4.4 LOW RISK 4.4 - 7.1 AVERAGE RISK 7.1 - 11.0 MODERATE RISK >11.0 HIGH RISK Performed By: #### T SH, LIPID, LIVER, BMP #### [facility] [address] [place] [address] [address] Reji Briscoe Cholesterol [Mass/Vol] 200 mg/dL Normal <=200 [facility] Comment on above: Performed By: #### T SH, LIPID, LIVER, BMP #### [facility] [address] [place] [address] [address] Reji Briscoe Cholesterol in HDL [Mass/Vol] 43 mg/dL Normal 40-60 [facility] Comment on above: Performed By: #### T SH, LIPID, LIVER, BMP #### [facility] [address] [place] [address] Dr. Reji Briscoe Cholesterol in LDL [Mass/Vol] 116.4 mg/dL Normal [facility] Comment on above: Performed By: #### T SH, LIPID, LIVER, BMP #### [facility] [address] [place] [address] Dr. Reji Briscoe Cholesterol.total/Ch olesterol in HDL [Mass ratio] 4.7 {ratio} Normal [facility] Comment on above: Performed By: #### T SH, LIPID, LIVER, BMP #### [facility] [address] [place] [address] Dr. Reji Briscoe HDL NORMAL > or = 60 mg/dl - LO W CARDIOVASCULAR RISK <40 mg/dl - HIGH CARDIOVASCULAR RISK Normal [facility] Comment on above: Performed By: #### T SH, LIPID, LIVER, BMP #### [facility] [address] [place] [address] Dr. Reji Briscoe LDL CALC NORMAL SEE BELOW Normal [facility] Comment on above: Result Comment: <100 mg/dl OPTIMAL 100 - 129 mg/dl NEAR OR ABOVE OPTIMAL 130 - 159 mg/dl BORDERLINE HIGH 160 - 189 mg/dl HIGH >190 mg/dl VERY HIGH Performed By: #### T SH, LIPID, LIVER, BMP #### [facility] [address] [address] [address] Reji Briscoe Triglyceride [Mass/Vol] 203 mg/dL Critically high <=150 [facility] Comment on above: Performed By: #### T SH, LIPID, LIVER, BMP #### [facility] [address] [address] [address] Reji Briscoe VLDL CALC 40.6 mg/dL Normal [facility] Comment on above: Performed By: #### T SH, LIPID, LIVER, BMP #### [facility] [address] [address] [address] Reji Briscoe LIVER PROFILEon 02-27-2023 Albumin [Mass/Vol] 4.0 g/dL Normal 3.4-5.0 [facility] Comment on above: Performed By: #### T SH, LIPID, LIVER, BMP #### [facility] [address] [address] [address] Reji Briscoe Albumin/Globulin [Mass ratio] 1.1 {ratio} Normal [facility] Comment on above: Performed By: #### T SH, LIPID, LIVER, BMP #### [facility] [address] [address] [address] Reji Briscoe ALP [Catalytic activity/Vol] 59 U/L Normal 46-116 [facility] Comment on above: Performed By: #### T SH, LIPID, LIVER, BMP #### [facility] [address] [place] [address] [address] Reji Briscoe ALT [Catalytic activity/Vol] 41 U/L Normal 16-63 [facility] Comment on above: Performed By: #### T SH, LIPID, LIVER, BMP #### [facility] [address] [place] [address] [address] Reji Briscoe AST [Catalytic activity/Vol] 22 U/L Normal 15-37 [facility] Comment on above: Performed By: #### T SH, LIPID, LIVER, BMP #### [facility] [address] [place] [address] [address] Reji Briscoe BILI, CONJUGATED 0.1 mg/dL Normal 0.0-0.2 [facility] Comment on above: Performed By: #### T SH, LIPID, LIVER, BMP #### [facility] [address] [place] [address] Dr. Reji Briscoe Bilirubin [Mass/Vol] 0.5 mg/dL Normal 0.2-1.0 [facility] Comment on above: Performed By: #### T SH, LIPID, LIVER, BMP #### [facility] [address] [place] [address] Dr. Reji Briscoe Globulin (S) [Mass/Vol] 3.5 g/dL Normal [facility] Comment on above: Performed By: #### T SH, LIPID, LIVER, BMP #### [facility] [address] [place] [address] Dr. Reji Briscoe Protein [Mass/Vol] 7.5 g/dL Normal 6.4-8.[address] [facility] Comment on above: Performed By: #### T SH, LIPID, LIVER, BMP #### [facility] [address] [place] [address] Dr. Reji Briscoe PROF CHEM 8 (BAS METB)on Anion gap [Moles/Vol] 9.2 mmol/L Normal [facility] Comment on above: Performed By: #### T SH, LIPID, LIVER, BMP #### [facility] [address] [place] [address] Dr. Reji Briscoe Calcium [Mass/Vol] 8.9 mg/dL Normal 8.5-10.[address] [facility] Comment on above: Performed By: #### T SH, LIPID, LIVER, BMP #### [facility] [address] [place] [address] Dr. Reji Briscoe Chloride [Moles/Vol] 100 mmol/L Normal 98-107 [facility] Comment on above: Performed By: #### T SH, LIPID, LIVER, BMP #### [facility] [address] [place] [address] Dr. Reji Briscoe CO2 [Moles/Vol] 30.0 mmol/L Normal 21.0-32.0 [facility] Comment on above: Performed By: #### T SH, LIPID, LIVER, BMP #### [facility] [address] [address] [address] Reji Briscoe Creatinine [Mass/Vol] 0.97 mg/dL Normal 0.70-1.30 [facility] Comment on above: Performed By: #### T SH, LIPID, LIVER, BMP #### [facility] [address] [address] [address] Reji Briscoe EGFR-AF BAHRAINI >60 Normal >=60 [facility] Comment on above: Performed By: #### T SH, LIPID, LIVER, BMP #### [facility] [address] [address] [address] Reji Briscoe EGFR-NON AF BAHRAINI >60 Normal >=60 [facility] Comment on above: Performed By: #### T SH, LIPID, LIVER, BMP #### [facility] [address] [place] [address] [address] Reji Briscoe Glucose [Mass/Vol] 121 mg/dL Critically high 74-106 [facility] Comment on above: Performed By: #### T SH, LIPID, LIVER, BMP #### [facility] [address] [place] [address] [address] Reji Briscoe Potassium [Moles/Vol] 4.2 mmol/L Normal 3.5-5.1 [facility] Comment on above: Performed By: #### T SH, LIPID, LIVER, BMP #### [facility] [address] [address] [address] Reji Briscoe Sodium [Moles/Vol] 135 mmol/L Critically low 136-145 [facility] Comment on above: Performed By: #### T SH, LIPID, LIVER, BMP #### [facility] [address] [address] [address] Reji Briscoe Urea nitrogen [Mass/Vol] 11.0 mg/dL Normal 7.0-18.0 [facility] Comment on above: Performed By: #### T SH, LIPID, LIVER, BMP #### [facility] [address] [place] [address] Dr. Reji Briscoe Urea nitrogen/Creatinine [Mass ratio] 11.3 mg/mg Normal [facility] Comment on above: Performed By: #### T SH, LIPID, LIVER, BMP #### [facility] [address] [place], [place] [address] Dr. Reji Briscoe TSHon 02-27-2023 TSH 0.861 uIU/mL Normal 0.358-3.740 [facility] Comment on above: Performed By: #### T SH, LIPID, LIVER, BMP #### [facility] [id number] Reji Briscoe Vital Signs Date Time Vital Sign Value Performing Clinician Faci lity 12-01-2024 10:34-0500 Body mass index (BMI) [Ratio] 32.47 kg/m2 Sunny Herrera MD Work Phone: [facility] 12-01-2024 10:34-0500 Body temperature 97 [degF] Sunny Herrera MD Work Phone: [facility] 12-01-2024 10:34-0500 Body weight 94.03 kg Sunny Herrera MD Work Phone: [facility] 12-01-2024 10:34-0500 Diastolic blood pressure 78 mm[Hg] Sunny Herrera MD Work Phone: [facility] 12-01-2024 10:34-0500 Heart rate 76 /min Sunny Herrera MD Work Phone: [facility] 12-01-2024 10:34-0500 SaO2% (BldA) [Mass fraction] 97 % Sunny Herrera MD Work Phone: [facility] 12-01-2024 10:34-0500 Systolic blood pressure 130 mm[Hg] Sunny Herrera MD Work Phone: [facility] 10-29-2024 11:38-0500 Body height 170.2 cm Sunny Herrera MD Work Phone: [facility] 10-29-2024 11:38-0500 Body mass index (BMI) [Ratio] 32.26 kg/m2 Sunny Herrera MD Work Phone: [facility] 10-29-2024 11:38-0500 Body temperature 97.5 [degF] Sunny Herrera MD Work Phone: [facility] 10-29-2024 11:38-0500 Body weight 93.44 kg Sunny Herrera MD Work Phone: [facility] 10-29-2024 11:38-0500 Diastolic blood pressure 76 mm[Hg] Sunny Herrera MD Work Phone: [facility] 10-29-2024 11:38-0500 Heart rate 70 /min Sunny Herrera MD Work Phone: [facility] 10-29-2024 11:38-0500 Respiratory rate 20 /min Sunny Herrera MD Work Phone: [facility] 10-29-2024 11:38-0500 SaO2% (BldA) [Mass fraction] 97 % Sunny Herrera MD Work Phone: [facility] 10-29-2024 11:38-0500 Systolic blood pressure 160 mm[Hg] Sunny Herrera MD Work Phone: [facility] 10-16-2024 10:35-0500 Body height 170.2 cm Roxanne Gooden [employer] Work Phone: [facility] 10-16-2024 10:35-0500 Body mass index (BMI) [Ratio] 32.61 kg/m2 Roxannejeffry Gooden [employer] Work Phone: [facility] 10-16-2024 10:35-0500 Body temperature 98.1 [degF] Roxanne Gooden [employer] Work Phone: [facility] 10-16-2024 10:35-0500 Body weight 94.44 kg Roxanne Gooden [employer] Work Phone: [facility] 10-16-2024 10:35-0500 Diastolic blood pressure 80 mm[Hg] Roxanne Gooden [employer] Work Phone: [facility] 10-16-2024 10:35-0500 Heart rate 69 /min Roxanne Gooden [employer] Work Phone: [facility] 10-16-2024 10:35-0500 Respiratory rate 18 /min Roxanne Gooden [employer] Work Phone: [facility] 10-16-2024 10:35-0500 SaO2% (BldA) [Mass fraction] 99 % Roxanne Gooden [employer] Work Phone: [facility] 10-16-2024 10:35-0500 Systolic blood pressure 142 mm[Hg] Roxanne Gooden [employer] Work Phone: [facility] 08-29-2024 11:01-0500 Body height 170.2 cm Sunny Herrera MD Work Phone: [facility] 08-29-2024 11:01-0500 Body mass index (BMI) [Ratio] 32.11 kg/m2 Sunny Herrera MD Work Phone: [facility] 08-29-2024 11:01-0500 Body temperature 97.5 [degF] Sunny Herrera MD Work Phone: [facility] 08-29-2024 11:01-0500 Body weight 92.99 kg Sunny Herrera MD Work Phone: [facility] 08-29-2024 11:01-0500 Diastolic blood pressure 62 mm[Hg] Sunny Herrera MD Work Phone: [facility] 08-29-2024 11:01-0500 Heart rate 66 /min Sunny Herrera MD Work Phone: [facility] 08-29-2024 11:01-0500 Respiratory rate 18 /min Sunny Herrera MD Work Phone: [facility] 08-29-2024 11:01-0500 SaO2% (BldA) [Mass fraction] 98 % Sunny Herrera MD Work Phone: [facility] 08-29-2024 11:010500 Systolic blood pressure 124 mm[Hg] Sunny Herrera MD Work Phone: [facility] Encounters Encounter Date Encounter Type Care Provider Facility Start: 03-24-2025 End: 03-25-2025 Refill Sunny Herrera MD Work Phone: [facility] Comment on above: Essential hypertensi on, benign (CMS/HCC) Start: 12-01-2024 End: 12-01-2024 Bamboo flowsheet Sunny Herrera MD Work Phone: [facility] Start: 12-01-2024 End: 12-01-2024 Bamboo flowsheet Sunny Herrera MD Work Phone: [facility] Start: 12-01-2024 End: 12-01-2024 Office outpatient visit 15 minutes Sunny Herrera MD Work Phone: [facility] Comment on above: Chronic rhinosinusit is (Primary Dx); Essential hypertension, benign (CMS/HCC) Start: 12-01-2024 End: 12-01-2024 ambulatory SUNNY HERRERA Not Available Start: 10-29-2024 End: 10-29-2024 Bamboo flowsheet Sunny Herrera MD Work Phone: [facility] Start: 10-29-2024 End: 10-29-2024 Bamboo flowsheet Sunny Herrera MD Work Phone: [facility] Start: 10-29-2024 End: 10-29-2024 Office outpatient visit 15 minutes Sunny Herrera MD Work Phone: [facility] Comment on above: Acute nonsuppurative otitis media, bilateral (Primary Dx); Subacute maxillary sinusitis Start: 10-29-2024 End: 10-29-2024 ambulatory SUNNY HERRERA Not Available Start: 10-16-2024 End: 10-16-2024 Bamboo flowsheet Roxanne Gooden NP Work Phone: [facility] Start: 10-16-2024 End: 10-16-2024 Bamboo flowsheet Roxanne Berkley [employer] Work Phone: [facility] Start: 10-16-2024 End: 10-16-2024 Office outpatient visit 15 minutes Roxanne Berkley [employer] Work Phone: [facility] Comment on above: Subacute maxillary s inusitis (Primary Dx); Right otitis media with effusion Start: 10-16-2024 End: 10-16-2024 ambulatory ROXANNE EBRKLEY Not Available Start: 08-29-2024 End: 08-29-2024 Bamboo flowsheet Sunny Herrera MD Work Phone: [facility] Start: 08-29-2024 End: 08-29-2024 Bamboo flowsheet Sunny Herrera MD Work Phone: [facility] Start: 08-29-2024 End: 08-29-2024 Office outpatient visit 25 minutes Sunny Herrera MD Work Phone: [facility] Comment on above: Essential hypertensi on, benign (CMS/HCC) (Primary Dx); Generalized anxiety disorder (CMS/HCC); DDD (degenerative disc disease), cervical; Chronic rhinosinusitis Start: 08-29-2024 End: 08-29-2024 ambulatory SUNNY HERRERA Not Available Start: 05-27-2024 End: 05-27-2024 ambulatory Jailene Castillo [facility] Work Phone: Start: 05-27-2024 End: 05-27-2024 Departed Referred DO Jailene Castillo Work Phone: [facility] Start: 05-21-2024 End: 05-21-2024 ambulatory SUNNY HERRERA Not Available Start: 05-20-2024 End: 05-20-2024 ambulatory SUNNY HERRERA Not Available Start: 03-12-2024 End: 03-12-2024 ambulatory JAILENE CASTILLO Not Available Start: 02-20-2024 Patient encounter procedure Sunny Herrera MD Work Phone: [facility] Start: 02-20-2024 End: 02-20-2024 ambulatory SUNNY HERRERA Not Available Start: 03-03-2023 Encounter for genera l adult medical examination without abnormal findings DR SUNNY HERRERA [facility] Start: 02-27-2023 End: 02-28-[address] SUNNY HERRERA Facility:[facility] Start: 02-27-2023 End: 02-28-2023 Encounter for general adult medical examination without abnormal findings DR SUNNY HERRERA Facility:[facility] Procedures Date Procedure Procedure Detail Performing Clinician Start: 05-27-2024 Colonoscopy Sunny ramirez MD Work Phone: Start: 02-27-[address] SUNNY HOPPER Comment on above: Performed By: #### P SASC #### [facility] [address] [place] [address] Dr. Reji Briscoe Plan of Treatment Date Care Activity Detail Author Start: 05-27-2034 Screening for malign ant neoplasm of colon [facility] Start: 06-22-2025 Influenza vaccination Influenz a Vaccine (Season Ended) [facility] Start: 04-23-2025 End: 04-23-2025 Patient encounter procedure 04/23/2025 10:00 AM EDT Office Visit [facility] [address] [place] [phone] Sunny Herrera MD [address] [place] [phone] [facility] Start: 02-27-2025 End: 02-27-2025 Patient encounter procedure 02/27/2025 10:30 AM EDT Office Visit [facility] [address] [place] [phone] Sunny Herrera MD [address] [place] [phone] [facility] Start: 12-01-2024 End: 12-01-2024 Patient encounter procedure [facility] Comment on above: Arrived Start: 11-11-2024 End: 11-11-2024 Patient encounter procedure 11/11/2024 11:30 AM EST Office Visit [facility] [address] [place] [address] Roxanne Gooden, REECE [address] [place] [id number] [facility] Start: 10-29-2024 End: 10-29-2024 Patient encounter procedure 10/29/2024 11:15 AM EST Office Visit [facility] [address] [place] [address] Sunny Herrera MD [address] [place] [phone] Arrived [facility] Comment on above: Arrived Start: 10-16-2024 End: 10-16-2024 Patient encounter procedure 10/16/2024 10:30 AM EST Office Visit [facility] [address] [place] [address] Roxanne Gooden, REECE [address] [place] [phone] Arrived [facility] Comment on above: Arrived Start: 08-29-2024 End: 08-29-2024 Patient encounter procedure 08/29/2024 11:00 AM EST Office Visit [facility] [address] [place] [address] Sunny Herrera MD [address] [place] [phone] Arrived [facility] Comment on above: Arrived Start: 06-22-2024 Influenza vaccination Influenza Vacc ine (#1) [facility] Start: 05-27-2024 [facility] Start: 2010 Pneumococcal Vaccine : 65+ Years (1 of 1 - PCV) Pneumococcal Vaccine: 65+ Years (1 of 1 - PCV) [facility] Start: 1960 Screening for malign ant neoplasm of colon [facility] Payers Date Payer Category Payer Self-pay 2022 Private Health Insurance [employer] [id number] 2022 Unknown [id number] 1960 Unknown [id number] .[id number] 1960 Unknown [id number] .2.1258 1960 Unknown [id number] [id number] .2.1258 1960 Unknown [id number] .2.1258 1960 Unknown [id number] .2.1258 1960 Unknown [id number] .2.1258 1960 Unknown [id number] .2.1258 1960 Unknown [id number] [id number] .2.1258 1960 Unknown [id number] .2.1259 1960 Unknown [id number] .2.1259 Social History Date Type Detail Facility Tobacco smoking stat [facility] Unknown if ever smoked [facility] Work Phone: Start: 1960 Sex Assigned At Male F [facility] Start: 02-20-2024 Tobacco smoking stat [facility] Ex-smoker [facility] Start: 10-22-1986 End: 10-22-2001 History of tobacco use Current smoker [facility] Start: 10-22-1986 End: 10-22-2001 History of tobacco use Cigarette Smoker [facility] Start: 02-20-2024 End: 12-01-2024 Cigarettes smoked current (pack per day) - Reported 1 [facility] Start: 02-20-2024 Tobacco use and exposure Smokeless tobacco non-user [facility] Start: 08-29-2024 End: 12-01-2024 Alcoholic beverage intake Lifetime non-drinker (finding) [facility] Start: 08-29-2024 End: 12-01-2024 Tobacco use panel [facility] Start: 1960 Sex assigned at Not on file [facility] Clinical Notes 08-29-2024 to 12-01-2024 Sunny Herrera MD - 12/01/2024 11:18 AM Severino Herrera MD - 12/01/2024 11:18 AM Severino Herrera MD - 12/01/2024 10:15 AM Severino Herrera MD - 10/29/2024 12:15 PM ESTPatient Instructions Note Date & Type Note Facility 12-01-2024 History of Presen t illness Narrative Associated Problem(s): Essential hypertension, benign (CMS/HCC) BP controlled and monitor PRN. Associated Problem(s): Chronic rhinosinusitis Frequent symptoms and resume daily nasacort and zyrtec. If no improvement will refer to ENT. Images from the original note were not included. Subjective Patient ID: Reed Valles is a 64 y.o. male who presents for No chief complaint on file.. Follow up HTN and ear pain. Checking BP PRN and typically controlled. BP normal today. Taking medication daily and tolerating without side effects. Continues to have sinus symptoms and congestion. Mild ZELAYA and sinus pressure in forehead and cheeks along with postnasal drip. Right ear plugged and popping. Pain and pressure radiates into jaw. Using zyrtec and prior flonase but caused nose bleeds. Review of Systems Constitutional: Negative for fatigue. Respiratory: Negative for cough, shortness of breath and wheezing. Cardiovascular: Negative for chest pain and palpitations. Gastrointestinal: Negative for abdominal pain, diarrhea, nausea and vomiting. Genitourinary: Negative for dysuria. Objective Physical Exam Constitutional: General: He is not in acute distress. Appearance: Normal appearance. HENT: Head: Normocephalic. Right Ear: Tympanic membrane and ear canal normal. Left Ear: Tympanic membrane and ear canal normal. Eyes: Extraocular Movements: Extraocular movements intact. Pupils: Pupils are equal, round, and reactive to light. Cardiovascular: Rate and Rhythm: Normal rate and regular rhythm. Heart sounds: No murmur heard. No friction rub. No gallop. Pulmonary: Breath sounds: Normal breath sounds. No wheezing, rhonchi or rales. Abdominal: General: Bowel sounds are normal. There is no distension. Palpations: Abdomen is soft. Tenderness: There is no abdominal tenderness. There is no guarding or rebound. Musculoskeletal: Left lower leg: No edema. Neurological: Mental Status: He is alert. Assessment/Plan Problem List Items Addressed This Visit Essential hypertension, benign (CMS/HCC) BP controlled and monitor PRN. Chronic rhinosinusitis - Primary Frequent symptoms and resume daily nasacort and zyrtec. If no improvement will refer to ENT. documented in this encounter [facility] 10-29-2024 History of Presen t illness Narrative Associated Problem(s): Subacute maxillary sinusitis Take antibiotics for 7 days. Use prednisone for inflammation. Use sudafed or other decongestants as needed. Use Robitussin or Robitussin-DM for cough. Can use afrin for congestion but no longer than 3 days. Can use Mucinex to bring up phlegm. Use Motrin or Tylenol as needed for fever, aches, or pains. Increase fluid intake and rest. Should improve over next 5-7 days and if no better or worse call for re-evaluation. Associated Problem(s): Annual physical exam Take antibiotics for 7 days. Use prednisone for inflammation. Use sudafed or other decongestants as needed. Use Robitussin or Robitussin-DM for cough. Can use afrin for congestion but no longer than 3 days. Can use Mucinex to bring up phlegm. Use Motrin or Tylenol as needed for fever, aches, or pains. Increase fluid intake and rest. Should improve over next 5-7 days and if no better or worse call for re-evaluation. Associated Problem(s): Acute nonsuppurative otitis media, bilateral .mansinsu Images from the original note were not included. Subjective Patient ID: Reed Valles is a 64 y.o. male who presents for Ear Fullness. C/o ears plugged and increased congestion over past several days. Seen 10/16 for sinusitis and right OM. Treated with medrol and doxy. Initially seemed to improve and had a few good days. 1 symptoms returned. Severe pain and pressure in ear. Hearing decreased and muffled. Increased congestion and sinus pressure. ZELAYA in forehead and cheeks along with postnasal drip. Balance off and unsteady. Using OTC and not much relief. Review of Systems Constitutional: Negative for fatigue. Respiratory: Negative for cough, shortness of breath and wheezing. Cardiovascular: Negative for chest pain and palpitations. Gastrointestinal: Negative for abdominal pain, diarrhea, nausea and vomiting. Genitourinary: Negative for dysuria. Objective Physical Exam Constitutional: General: He is not in acute distress. Appearance: Normal appearance. HENT: Head: Normocephalic. Right Ear: Ear canal normal. Left Ear: Ear canal normal. Ears: Comments: Bilateral TM with moderate erythema, dull, and bulging with fluid Eyes: Extraocular Movements: Extraocular movements intact. Pupils: Pupils are equal, round, and reactive to light. Cardiovascular: Rate and Rhythm: Normal rate and regular rhythm. Heart sounds: No murmur heard. No friction rub. No gallop. Pulmonary: Breath sounds: Normal breath sounds. No wheezing, rhonchi or rales. Abdominal: General: Bowel sounds are normal. There is no distension. Palpations: Abdomen is soft. Tenderness: There is no abdominal tenderness. There is no guarding or rebound. Musculoskeletal: Left lower leg: No edema. Neurological: Mental Status: He is alert. Assessment/Plan Problem List Items Addressed This Visit Subacute maxillary sinusitis Take antibiotics for 7 days. Use prednisone for inflammation. Use sudafed or other decongestants as needed. Use Robitussin or Robitussin-DM for cough. Can use afrin for congestion but no longer than 3 days. Can use Mucinex to bring up phlegm. Use Motrin or Tylenol as needed for fever, aches, or pains. Increase fluid intake and rest. Should improve over next 5-7 days and if no better or worse call for re-evaluation. Relevant Medications predniSONE (Deltasone) 50 MG tablet levoFLOXacin (Levaquin) 750 MG tablet Acute nonsuppurative otitis media, bilateral - Primary .mansinsu documented in this encounter [facility] 10-16-2024 History of Presen t illness Narrative Associated Problem(s): Subacute maxillary sinusitis Atb, steroids Cont allergy meds and nasal steroids Fu in 4 weeks. If not better ,consider CT scan sinuses Associated Problem(s): Right otitis media with effusion Finish atbs, and steroids As well as nasal steroids and allergy meds Fu in 4 weeks Pt was with dr herrera in the beginning of the month for ringing ears however it has become painful he said he has been having sinus issues now. Any time he is having sinus problems he is having tooth pain on the right side. Right ear he can not hear out of. Images from the original note were not included. Reed Valles is a 64 y.o. male presents with chief complaint of Earache HPI: Earache There is pain in the right ear. The current episode started in the past 7 days. The problem occurs constantly. There has been no fever. The pain is moderate. Associated symptoms include hearing loss and rhinorrhea. Pertinent negatives include no abdominal pain, coughing, diarrhea, ear discharge, headaches, neck pain, rash, sore throat or vomiting. He has tried ear drops for the symptoms. The treatment provided no relief. There is no history of a chronic ear infection, hearing loss or a tympanostomy tube. Sinusitis This is a new problem. The problem has been waxing and waning since onset. There has been no fever. He is experiencing no pain. Associated symptoms include congestion, ear pain and sinus pressure. Pertinent negatives include no coughing, headaches, neck pain, shortness of breath, sneezing, sore throat or swollen glands. The treatment provided mild relief. SUBJECTIVE: MEDICATIONS: Current Outpatient Medications Medication Instructions atorvastatin (LIPITOR) 80 mg, Oral, Nightly diphenhydrAMINE-acetaminophen (Tylenol PM) 25-500 MG per tablet 1 tablet, Nightly PRN doxycycline (VIBRA-TABS) 100 mg, Oral, 2 times daily, Take with a full glass of water and do not lie down for at least 30 minutes after. lisinopril 40 mg, Oral, Daily methylPREDNISolone (Medrol Dospak) 4 MG tablets Follow schedule on package instructions ALLERGIES: Allergies Allergen Reactions Bee Venom Hives Penicillin G Unknown REVIEW OF SYMPTOMS: Review of Systems Constitutional: Negative for activity change, appetite change and unexpected weight change. HENT: Positive for congestion, ear pain, hearing loss, rhinorrhea and sinus pressure. Negative for ear discharge, nosebleeds, sneezing, sore throat, trouble swallowing and voice change. Eyes: Negative for pain, discharge and visual disturbance. Respiratory: Negative for apnea, cough, chest tightness, shortness of breath and wheezing. Cardiovascular: Negative for leg swelling. Gastrointestinal: Negative for abdominal distention, abdominal pain, blood in stool, constipation, diarrhea and vomiting. Genitourinary: Negative for decreased urine volume, difficulty urinating, dysuria and hematuria. Musculoskeletal: Negative for neck pain. Skin: Negative for color change and rash. Neurological: Negative for dizziness, tremors, seizures and headaches. Psychiatric/Behavioral: Negative for agitation, decreased concentration, hallucinations, self-injury and suicidal ideas. The patient is not nervous/anxious. Hematological: Negative for adenopathy. Does not bruise/bleed easily. Endocrine: Negative for cold intolerance, heat intolerance, polydipsia and polyuria. Allergic/Immunologic: Negative for environmental allergies and food allergies. PAST MEDICAL HISTORY History reviewed. No pertinent past medical history. Past Surgical History: Procedure Laterality Date APPENDECTOMY CARPAL TUNNEL RELEASE Bilateral PROSTATECTOMY family history is not on file. OBJECTIVE: Visit Vitals BP 142/80 (BP Location: Left arm, Patient Position: Sitting, BP Cuff Size: Adult long) Pulse 69 Temp 98.1 F (Temporal) Resp 18 Ht 5' 7 Wt 208 lb 3.2 oz SpO2 99% BMI 32.61 kg/m Smoking Status Former BSA 2.11 m Physical Exam Vitals and nursing note reviewed. Constitutional: Appearance: Normal appearance. HENT: Head: Normocephalic. Right Ear: Ear canal and external ear normal. Left Ear: Ear canal and external ear normal. Ears: Comments: Fluid bilat TM's R>L Nose: Congestion and rhinorrhea present. Comments: Mild tenderness bilat sinus Mouth/Throat: Mouth: Mucous membranes are moist. Pharynx: Oropharynx is clear. Eyes: Extraocular Movements: Extraocular movements intact. Conjunctiva/sclera: Conjunctivae normal. Cardiovascular: Rate and Rhythm: Normal rate and regular rhythm. Pulses: Normal pulses. Heart sounds: Normal heart sounds. Pulmonary: Effort: Pulmonary effort is normal. Breath sounds: Normal breath sounds. Abdominal: General: Bowel sounds are normal. Palpations: Abdomen is soft. Musculoskeletal: Cervical back: Neck supple. Right lower leg: No edema. Left lower leg: No edema. Lymphadenopathy: Cervical: No cervical adenopathy. Skin: General: Skin is warm and dry. Capillary Refill: Capillary refill takes 2 to 3 seconds. Neurological: General: No focal deficit present. Mental Status: He is alert. Psychiatric: Mood and Affect: Mood normal. Behavior: Behavior normal. Thought Content: Thought content normal. Judgment: Judgment normal. ASSESSMENT AND PLAN: Follow up in about 4 weeks (around 11/13/2024) for Recheck. Problem List Items Addressed This Visit Subacute maxillary sinusitis - Primary Atb, steroids Cont allergy meds and nasal steroids Fu in 4 weeks. If not better ,consider CT scan sinuses Relevant Medications doxycycline (Vibra-Tabs) 100 MG tablet methylPREDNISolone (Medrol Dospak) 4 MG tablets Right otitis media with effusion Finish atbs, and steroids As well as nasal steroids and allergy meds Fu in 4 weeks Relevant Medications doxycycline (Vibra-Tabs) 100 MG tablet documented in this encounter [facility] 10-16-2024 Instructions Roxanne Gooden NP - 10/16/2024 10:30 AM EST Sent in to [facility]: doxycycline 100mg twice a day for 10 days, medrol dose pack (steroids) take with food Continue allergy meds: cetirizine 10mg daily plus flonase nasal spray 2 sprays each nostril daily Follow up in 4 weeks if not better may need a CT sinuses documented in this encounter [facility] 08-29-2024 History of Presen t illness Narrative Associated Problem(s): Generalized anxiety disorder (CMS/HCC) Symptoms tolerable and monitor. Associated Problem(s): Essential hypertension, benign (CMS/HCC) BP controlled and monitor PRN. Associated Problem(s): DDD (degenerative disc disease), cervical Pain stable and use OTC PRN. Associated Problem(s): Chronic rhinosinusitis Frequent symptoms and start daily nasacort and zyrtec. Images from the original note were not included. Subjective Patient ID: Reed Valles is a 64 y.o. male who presents for Follow-up (6 m/Arthritis/) and Sinusitis. Follow up HTN, anxiety, and neck pain. Checking BP PRN and typically controlled. BP normal today. Taking medication daily and tolerating without side effects. Anxiety stable. Not as stressed out or overwhelmed. Not as nervous or worry as much. Not as [place] or irritable. Not on medication but feels like doing okay. Neck pain improved. Frequent stiffness and worse with activity. No radiation into arms or hands. Using OTC and mild relief. C/o sinus symptoms and congestion for weeks. ZELAYA and sinus pressure in forehead and cheeks along with postnasal drip. Ears plugged and popping. Using OTC and not much relief. Review of Systems Constitutional: Negative for fatigue. Respiratory: Negative for cough, shortness of breath and wheezing. Cardiovascular: Negative for chest pain and palpitations. Gastrointestinal: Negative for abdominal pain, diarrhea, nausea and vomiting. Genitourinary: Negative for dysuria. Objective Physical Exam Constitutional: General: He is not in acute distress. Appearance: Normal appearance. HENT: Head: Normocephalic. Right Ear: Tympanic membrane and ear canal normal. Left Ear: Tympanic membrane and ear canal normal. Eyes: Extraocular Movements: Extraocular movements intact. Pupils: Pupils are equal, round, and reactive to light. Cardiovascular: Rate and Rhythm: Normal rate and regular rhythm. Heart sounds: No murmur heard. No friction rub. No gallop. Pulmonary: Breath sounds: Normal breath sounds. No wheezing, rhonchi or rales. Abdominal: General: Bowel sounds are normal. There is no distension. Palpations: Abdomen is soft. Tenderness: There is no abdominal tenderness. There is no guarding or rebound. Musculoskeletal: Left lower leg: No edema. Neurological: Mental Status: He is alert. Assessment/Plan Problem List Items Addressed This Visit Essential hypertension, benign (CMS/HCC) - Primary BP controlled and monitor PRN. Generalized anxiety disorder (CMS/HCC) Symptoms tolerable and monitor. DDD (degenerative disc disease), cervical Pain stable and use OTC PRN. Chronic rhinosinusitis Frequent symptoms and start daily nasacort and zyrtec. documented in this encounter [facility] Evaluation note No assessment inform ation available [facility] Work Phone: Evaluation note Diagnosis Annual physical exam- Primary Routine general medical examination at a health care facility Essential hypertension, benign (CMS/HCC) Essential hypertension, benign Colon cancer screening Special screening for malignant neoplasms, colon Neck pain, chronic- Primary Chronic right-sided low back pain with right-sided sciatica Paresthesia Disturbance of skin sensation Essential hypertension, benign (CMS/HCC)- Primary Essential hypertension, benign Generalized anxiety disorder (CMS/HCC) Generalized anxiety disorder DDD (degenerative disc disease), cervical Degeneration of cervical intervertebral disc Chronic rhinosinusitis Unspecified sinusitis (chronic) documented [facility] Diagnosis Annual physical exam- Primary Routine general medical examination at a health care facility Essential hypertension, benign (CMS/HCC) Essential hypertension, benign Colon cancer screening Special screening for malignant neoplasms, colon Neck pain, chronic- Primary Chronic right-sided low back pain with right-sided sciatica Paresthesia Disturbance of skin sensation Essential hypertension, benign (CMS/HCC)- Primary Essential hypertension, benign Generalized anxiety disorder (CMS/HCC) Generalized anxiety disorder DDD (degenerative disc disease), cervical Degeneration of cervical intervertebral disc Chronic rhinosinusitis Unspecified sinusitis (chronic) Subacute maxillary sinusitis- Primary Right otitis media with effusion Nonsuppurative otitis media, not specified as acute or chronic documented [facility] Diagnosis Annual physical exam- Primary Routine general medical examination at a health care facility Essential hypertension, benign (CMS/HCC) Essential hypertension, benign Colon cancer screening Special screening for malignant neoplasms, colon Neck pain, chronic- Primary Chronic right-sided low back pain with right-sided sciatica Paresthesia Disturbance of skin sensation Essential hypertension, benign (CMS/HCC)- Primary Essential hypertension, benign Generalized anxiety disorder (CMS/HCC) Generalized anxiety disorder DDD (degenerative disc disease), cervical Degeneration of cervical intervertebral disc Chronic rhinosinusitis Unspecified sinusitis (chronic) Subacute maxillary sinusitis- Primary Right otitis media with effusion Nonsuppurative otitis media, not specified as acute or chronic Acute nonsuppurative otitis media, bilateral- Primary Subacute maxillary sinusitis documented [facility] Diagnosis Annual physical exam- Primary Routine general medical examination at a health care facility Essential hypertension, benign (CMS/HCC) Essential hypertension, benign Colon cancer screening Special screening for malignant neoplasms, colon Neck pain, chronic- Primary Chronic right-sided low back pain with right-sided sciatica Paresthesia Disturbance of skin sensation Essential hypertension, benign (CMS/HCC)- Primary Essential hypertension, benign Generalized anxiety disorder (CMS/HCC) Generalized anxiety disorder DDD (degenerative disc disease), cervical Degeneration of cervical intervertebral disc Chronic rhinosinusitis Unspecified sinusitis (chronic) Subacute maxillary sinusitis- Primary Right otitis media with effusion Nonsuppurative otitis media, not specified as acute or chronic Acute nonsuppurative otitis media, bilateral- Primary Subacute maxillary sinusitis Chronic rhinosinusitis- Primary Unspecified sinusitis (chronic) Essential hypertension, benign (CMS/HCC) Essential hypertension, benign documented in this encounter [facility] Diagnosis Annual physical exam- Primary Routine general medical examination at a health care facility Essential hypertension, benign (CMS/HCC) Essential hypertension, benign Colon cancer screening Special screening for malignant neoplasms, colon Neck pain, chronic- Primary Chronic right-sided low back pain with right-sided sciatica Paresthesia Disturbance of skin sensation Essential hypertension, benign (CMS/HCC)- Primary Essential hypertension, benign Generalized anxiety disorder (CMS/HCC) Generalized anxiety disorder DDD (degenerative disc disease), cervical Degeneration of cervical intervertebral disc Chronic rhinosinusitis Unspecified sinusitis (chronic) Subacute maxillary sinusitis- Primary Right otitis media with effusion Nonsuppurative otitis media, not specified as acute or chronic Acute nonsuppurative otitis media, bilateral- Primary Subacute maxillary sinusitis Chronic rhinosinusitis- Primary Unspecified sinusitis (chronic) Essential hypertension, benign (CMS/HCC) Essential hypertension, benign Essential hypertension, benign (CMS/HCC) Essential hypertension, benign documented in this encounter [facility] Summary Purpose Family History No Family History Records FoundNo Family History Records FoundNo Family History Records Found Advance Directives No Advanced Directives Records FoundNo Advanced Directives Records FoundNo Advanced Directives Records Found Additional Source Comments (unrecognized sect ion and content) No Status Records FoundNo Status Records FoundNo Status Records Found INFORMATION SOURCE (unrecogn ized section and content) DATE CREATED AUTHOR 03/04/2023 [facility] DATE CREATED AUTHOR AUTHOR'S ORGANIZ ATION 06/06/2024 [facility] DATE CREATED AUTHOR AUTHOR'S ORGANIZ ATION 12/02/2024 [facility] EPIC Care Teams (unrecognized sec tion and content) Team Status: Inactive Member Role Status Dates Jailene Castillo DO Attending Provider Active Star t: May 27, 2024 End: May 27, 2024 Mailer Relationship Specialty Start Date End Date Sunny Herrera MD [address] [place] [id number] PCP - General Family Medicine 10/22/22 Mailer Relationship Specialty Start Date End Date Sunny Herrera MD [address] [place] [id number] PCP - General Family Medicine 10/22/22 Mailer Relationship Specialty Start Date End Date Sunny Herrera MD [address] [place] [id number] PCP - General Family Medicine 10/22/22 Mailer Relationship Specialty Start Date End Date Sunny Herrera MD [address] [place] [id number] PCP - General Family Medicine 10/22/22 Mailer Relationship Specialty Start Date End Date Sunny Herrera MD [address] [place] [phone] PCP [facility] 10/22/22 Mailer Relationship Specialty Start Date End Date Sunny Herrera MD [address] [place] [phone] PCP - [facility] 10/22/22 Mailer Relationship Specialty Start Date End Date Sunny Herrera MD [address] [place] [phone] [facility] 10/22/22 Mailer Relationship Specialty Start Date End Date Sunny Herrera MD [address] [place] [phone] PCP [facility] 10/22/22 Mailer Relationship Specialty Start Date End Date Sunny Herrera MD [address] [place] [phone] [facility] 10/22/22 Goals (unrecognized section and content) Goals may be documented in a n alternate section Reason for Visit (unrecogniz ed section and content) Reason Comments Follow-up 6 mArthritis Sinusitis Reason Comments Earache Reason Comments Ear Fullness Reason Onset Date Comments Med Refill 03/24/2025 FOR RECORDS PERTAINING TO PATIENTS WHO ARE [...] BE BASED ON THE PRIMARY CLINICAL RECORDS. [facility] [employer] [facility]. provides no warranty or guarantee of the accuracy or completeness of information in this document.
[2025-04-09 10:14] LABS: Basophils Absolute Auto 0.1 10^3/uL (0.0-0.1); Eosinophils Absolute Auto 0.2 10^3/uL (0.0-0.7); Eosinophils Percent Auto 2.8 % (0.9-7.0); Hematocrit 42.8 % (42.0-54.0); Hemoglobin 14.8 g/dL (14.0-18.0); Immature Granulocytes Abs Auto 0.02 10^3/uL (0.00-0.03); Immature Granulocytes Pct Auto 0.3 % (0.0-0.5); Lymphocytes Absolute Auto 1.9 10^3/uL (1.2-3.8); Lymphocytes Percent Auto 33.7 % (20.5-60.0); Mean Corpuscular HGB Conc 34.6 g/dL (29.9-35.2); Mean Corpuscular Volume 92.4 fL (80.0-94.0); Mean Platelet Volume 8.8 fL (9.5-13.5); Monocytes Absolute Auto 0.7 10^3/uL (0.3-0.8); Monocytes Percent Auto 11.5 % (1.7-12.0); Neutrophils Absolute Auto 2.9 10^3/uL (1.4-6.5); Neutrophils Percent Auto 50.7 % (43.0-75.0); Platelet Count 204 10^3/uL (150-450); Red Blood Count 4.63 10^6/uL (4.70-6.10); Red Cell Distribution Width 11.9 % (11.0-15.0); White Blood Count 5.7 10^3/uL (4.0-11.0)
[2025-04-09 10:25] LABS: Estimated Average Glucose 123 mg/dL; Glycohemoglobin A1C 5.9 % (4.5-6.2)
[2025-04-09 10:37] LABS: Alanine Aminotransferase 39 U/L (16-63); Albumin Globulin Ratio 1.2; Alkaline Phosphatase 56 U/L (46-116); Anion Gap 16.6; Aspartate Amino Transferase 27 U/L (15-37); BUN Creatinine Ratio 14.4; Bilirubin Direct 0.1 mg/dL (0.0-0.2); Bilirubin Total 0.5 mg/dL (0.2-1.0); Calcium 9.1 mg/dL (8.5-10.1); Carbon Dioxide 22.7 mmol/L (21.0-32.0); Chloride 102 mmol/L (98-107); Chol HDL Ratio 3.6; Cholesterol 177 mg/dL (<=200); Estimated GFR (African America >60 (>=60 mL/min/1.73m^2); Estimated GFR (Non-African Ame >60 (>=60 mL/min/1.73m^2); Globulin 3.3 g/dL; Glucose 113 mg/dL (74-106); HDL Cholesterol 49 mg/dL (40-60); Potassium 4.3 mmol/L (3.5-5.1); Sodium 137 mmol/L (136-145); Thyroid Stimulating Hormone 0.869 uIU/mL (0.358-3.740); Total Protein 7.3 g/dL (6.4-8.2); Triglycerides 195 mg/dL (<=150)
[2025-04-09 11:20] LABS: Prostate Specific Antigen Scrn <0.13 ng/mL (<=4.00)
== END 2025-04-09 09:17 | disposition home or self-care (01) ==
LOC: LAB 09:27
PROVIDERS: PCP Family Medicine; Visit Provider Family Medicine
DX: E78.5 Hyperlipidemia, unspecified (principal); R73.03 Prediabetes; Z79.899 Other long term (current) drug therapy; Z85.46 Personal history of malignant neoplasm of prostate; E66.9 Obesity, unspecified
CPT/HCPCS: 36415; 80048; 80061; 80076; 83036; 84443; 85025; G0103